=== PATIENT | female | born 1985 ===

== ENCOUNTER 2024-02-08 12:42 | Outpatient (REF) | payer SELFPAY ==
[2024-02-08 13:10] LABS: MANUAL DIFF FLAG NO
[2024-02-08 13:36] LABS: Basophils Absolute Auto 0.1 X10*3/uL (0.0-0.2); Basophils Percent Auto 0.6 % (0-2); Eosinophils Absolute Auto 0.1 X10*3/uL (0.0-0.4); Eosinophils Percent Auto 0.9 % (0-4); Hematocrit 38.6 % (37.0-47.0); Hemoglobin 12.2 g/dl (12.0-16.0); Imm Gran Abs Auto 0.07 X10*3/uL (0.00-0.03); Imm Gran Pct Auto 0.6 % (0.0-0.4); Lymphocytes Absolute Auto 1.6 X10*3/uL (1.2-4.9); Mean Corpuscular HGB Conc 31.6 g/dl (31.0-35.0); Mean Corpuscular Hemoglobin 29.7 pg (27.0-33.0); Mean Corpuscular Volume 93.9 fL (80.0-98.0); Mean Platelet Volume 11.8 fL (9.4-12.3); Monocytes Absolute Auto 0.8 X10*3/uL (0.1-1.2); Monocytes Percent Auto 6.8 % (2-11); Neutrophils Absolute Auto 9.3 x10*3/uL (2.0-8.3); Neutrophils Percent Auto 78.1 % (45-73); Platelet Count 223 X10*3/uL (160-400); Red Blood Count 4.11 X10*6/uL (4.20-5.50); Red Cell Distribution Width 14.1 % (11.0-16.0); White Blood Count 11.9 X10*3/uL (4.8-10.8)
[2024-02-08 13:59] LABS: Anion Gap 14 (12-20); Blood Urea Nitrogen 48 mg/dL (9-16); Calcium 9.6 mg/dL (8.4-10.2); Carbon Dioxide 16 mmol/L (22-29); Chloride 112 mmol/L (96-108); Estimated Glomerular Filt Rate 19; Glucose Random 86 mg/dL (60-115); Potassium 4.6 mmol/L (3.3-5.1); Sodium 137 mmol/L (135-145)
[2024-02-09 03:26] LABS: CT PCR NOT DETECTED (Not Detect.); NG PCR NOT DETECTED (Not Detect.)
== END 2024-02-08 12:43 | disposition home or self-care (01) ==
LOC: HO.HHCL 12:42
PROVIDERS: Visit Provider Emergency Medicine
DX: N18.4 Chronic kidney disease, stage 4 (severe) (principal); R39.9 Unspecified symptoms and signs involving the genitourinary system
CPT/HCPCS: 36415; 80048; 85025; 87086; 87491; 87591

== ENCOUNTER 2024-02-13 10:26 | Outpatient (REF) | payer SELFPAY ==
[2024-02-13 13:38] LABS: CT PCR NOT DETECTED (Not Detect.); NG PCR NOT DETECTED (Not Detect.)
== END 2024-02-13 10:27 | disposition home or self-care (01) ==
LOC: HO.HHCL 10:26
PROVIDERS: Visit Provider Emergency Medicine
DX: N18.4 Chronic kidney disease, stage 4 (severe) (principal)
CPT/HCPCS: 87491; 87591

== ENCOUNTER 2025-04-05 14:35 | Outpatient (REF) | payer MEDICAID, OTHER, SELFPAY ==
--- OUTSIDE RECORDS SUMMARY | 2025-04-05 13:20 | XMS_ITS | Encounter Summary ---
Author Organization [employer] Address [address] [place] [address] Care Team Providers Care Industrial Truck Operator Name Role Phone Fidencio Dockery MD Primary Care Provider [phone] Reason for Visit * Reason Comments UTI Encounter Details Date Type Department Care Team ([facility] Contact Info) Description 04/05/2025 1:20 PM EDT Office Visit [facility] [address] [address] Dysuria (Primary Dx); Elevated blood pressure reading in office with diagnosis of hypertension; Vaginal discharge Social History Tobacco Use Types Packs/Day Years Used Date Smoking Tobacco: Never Passive Smoke Exposure: Never Smokeless Tobacco: Never Depression Answer Date Recorded Patient Health Questionnaire-9 Score 7 12/03/2024 Patient Health Questionnaire-9 Score 7 12/03/2024 Last PHQ-9: Questionnaire Data Not on file 0 12/03/2024 Housing Stability Answer Date Recorded What is your housing situation today? I have janny caballero 12/03/[address] you li ve. Do you have problems with any of the following? None of the above 12/03/2024 Food Insecurity Answer Date Recorded Within the past 12 months, y ou worried that your food would run out before you got money to buy more: Never True 12/03/2024 Within the past 12 months,th e food you bought just didn't last and you didn't have enough money to get more: Never True Transportation Answer Date Recorded In the past 12 months, has l ack of transportation kept you from medical appts, meetings, work or from getting things needed for daily living? No 12/03/2024 Utilities Answer Date Recorded In the past 12 months, has t he electric, gas, oil or water company threatened to shut off services in your home? No 12/03/2024 Depression Answer Date Recorded Patient Health Questionnaire-2 Score 0 12/03/2024 Internet Access Answer Date Recorded Internet Access Q1 Yes 12/03/2024 Internet Access Q2 Not on file 12/03/2024 Comments Unknown Sex and Gender Information Value Date Recorded Sex Assigned at Female 04/05/2022 10:35 AM EDT Legal Sex Female 10:35 AM EDT Gender Identity Female 04/05/2022 10:35 AM EDT Sexual Orientation Straight 04/05/2022 10 :35 AM EDT documented as of this encounter Last Filed Vital Signs Vital Sign Reading Time Taken Comments Blood Pressure 138/82 04/05/2025 2:24 PM EDT Pulse 94 04/05/2025 12:59 PM EDT Temperature 37.1 C (98.8 F) 04/05/2025 12:59 PM EDT Respiratory Rate 23 04/05/2025 12:59 PM EDT Oxygen Saturation 98% 04/05/2025 12:59 PM EDT Inhaled Oxygen Concentration - - Weight 81.9 kg (180 lb 9.6 oz) 04/05/2025 12:59 PM EDT Height 157.5 cm (5' 2 ) 04/05/2025 12:59 PM EDT Body Mass Index 33.03 04/05/2025 12:59 PM EDT documented in this encounter Plan of Treatment Upcoming Encounters Date Type Department Care Team (Late st Contact Info) Description 04/18/2025 3:00 PM EST Office Visit [facility] ADULT D[facility]AL [address] [place] [address] Windy Warren [address] [place] [address] [phone] Scheduled Orders Name Type Priority Associated Diagnoses Orde r Schedule Culture, Urine, Routine Microbiology Routine Dysuria Ordered: 04/05/2025 Basic Metabolic Panel Lab Routine Dysuria Expected: 04/05/2025 (Approximate), Expires: 04/05/2026 Bacterial Vaginosis, Yeast and Trich Microbiology Routine Vaginal discharge Expected: 04/05/2025 (Approximate), Expires: 04/05/2026 documented as of this encounter Procedures Procedure Name Priority Date/Time Associated Diagnosis Comments POCT URINALYSIS DIPSTICK Routine 04/05/2025 1:13 PM EDT Dysuria documented in this encounter Results * (ABNORMAL) POCT urinalysis dipstick manually resulted (CPT 17239) (04/05/2025 1:13 PM EDT) Color, UA Yellow Clarity, UA Clear Glucose, UA Negative Bilirubin, UA Negative Ketones, UA Negative Spec Grav, UA 1.020 Blood, UA Positive(A) Negative, None Detected Comment:trace-intact pH, UA 5.5 Protein, UA Trace Comment:100 mg/dl Urobilinogen, UA 0.2 Leukocytes, UA Trace Negative, Rare, Trace Comment:small Nitrite, UA Positive(A) Negative, None Detected Urine (Urine, Random) 04/05/2025 1:13 PM EDT [facility] LINEN ROOM SUPERVISOR POINT OF CARE TEST ENTER/EDIT O RDERABLES Final Result documented in this encounter Visit Diagnoses Diagnosis Dysuria- Primary Elevated blood pressure reading in office with diagnosis of hypertension Vaginal discharge Leukorrhea, not specified as infective documented in this encounter Additional Health Concerns Assessment Noted Time PHQ-9 Depression Total Score: 7 12/04/19 25 3:19 PM EDT documented as of this encounter Care Teams Industrial Truck Operator Relationship Specialty Start Date End Date Fidencio Dockery MD [address] [place] [id number] PCP - General Internal Medicine 06/11/21 documented as of this encounter
--- OUTSIDE RECORDS SUMMARY | 2025-04-05 15:08 | XMS_ITS | Encounter Summary ---
Author Organization [employer] Address [address] [place] [address] Care Team Providers Care Margin Analyst Name Role Phone Fidencio Dockery MD Primary Care Provider [phone]- [phone] Reason for Visit * Reason Onset Date Comments Nurse Triage 04/05/2025 Encounter Details Date Type Department Care Team ([facility] st Contact Info) Description 04/05/2025 Telephone [facility] MED & PEDS [address] [place] [address] Fidencio Dockery MD [address] [place] [address] Nurse Triage Social History Tobacco Use Types Packs/Day Years [...] AM EDT documented as of this encounter Miscellaneous Notes * Telephone Encounter - Gladys Casiano RN - 04/05/2025 11:46 AM EDT Clarita came to the office today for hepatitis B vaccine. During assessment, Clarita complained of feeling like she has a UTI. Juan complains of burning with urination and lower abdominal pain for 5 days without relief. Denies fevers, chills, nausea. Alert and oriented. Vitals: 97 F oral. 75 HR. 20 RR. 118/70 BP sit R arm. 95% room air. Advised of no available appointment in [facility] today and advised based on symptoms pt should be seen today. Advised to cancel appointment with nurse and schedule appointment with [facility]. Pt verbalized agreement. Appointment with nurse canceled and appointment booked in [facility] for 1:20 PM this afternoon. Advised pt will need to go to [facility]. Pt states has transportation and will go to [facility] [place] and verbalized agreement with plan. documented in this encounter Plan of Treatment Upcoming Encounters Date Type Department Care Team (Late st Contact Info) Description 04/18/2025 3:00 PM EST Office Visit [facility] ADULT DENTAL [address] [place] [address] Windy Warren [address] [place] [phone] documented as of this encounter Visit Diagnoses Not on filedocumented in this encounter Additional Health Concerns Assessment Noted Time PHQ-9 Depression Total Score: 7 12/04/19 25 3:19 PM EDT documented as of this encounter Care Teams Margin Analyst Relationship Specialty Start Date End Date Fidencio Dockery MD [address] [place] [phone] PCP - General Internal Medicine 06/11/21 documented as of this encounter
--- OUTSIDE RECORDS SUMMARY | 2025-04-05 15:08 | XMS_ITS | Clinical Summary ---
Author Organization [employer] Address [address] [place] [address] [address] [place] [address] Care Team Providers Care Mica Splitter Name Role Phone Fidencio Dockery MD Primary Care Provider [phone] Allergies No known active allergies Medications lisinopril 20 MG tablet TAKE 1 TABLET BY MOUTH EVERY DAY 90 tablet 1 12/04/2024 Active Active Problems Problem Noted Date Diagnosed Date CKD (chronic kidney disease) stage 4, GFR 15-29 ml/min ([facility]) 02/08/2024 HTN (hypertension) 02/08/2024 Proteinuria 09/01/2020 Encounters Date Type Department Care Team Description 04/05/2025 1:20 PM EDT Office Visit [facility] [address] [place] [address] Dysuria (Primary Dx); Elevated blood pressure reading in office with diagnosis of hypertension; Vaginal discharge 04/05/2025 Telephone [facility] MED & PEDS [address] [place], [place] [phone] Fidencio Dockery MD Nurse Triage 04/05/2025 Travel 03/29/2025 Travel 01/22/2025 3:00 PM EDT Office Visit [facility] D[facility] [address] [place], [place] [phone] Aldo Mejia DMD from Last 3 Months Immunizations Immunization Administration Dates Next Due Hep B, adult 12/03/2024 HepB-CpG 07/24/2024 Influenza injectable quadrivalent preservative f ree 04/08/2023,07/14/2021 Tdap 07/24/2024 Social History Tobacco Use Types Packs/Day Years [...] Orientation Straight 04/05/2022 10 :35 AM EDT Last Filed Vital Signs Vital Sign Reading [...] Mass Index 33.03 04/05/2025 12:59 PM EDT Plan of Treatment Upcoming Encounters Date Type Department Care Team (Late st Contact Info) Description 04/18/2025 3:00 PM EST Office Visit [facility] ADULT DENTAL [address] [place] [address] Windy Warren [address] [place] [address] [phone] Health Maintenance Due Date Last Done Comments Family Planning (PISQ) 1999 HPV Vaccines (1 - 3-dose series) 1999 Dental X-Ray: Full Mouth 01/05/2022 01/04/2019 Dental Oral Exam 04/07/2024 10/05/2023, , 01/04/2019 Cervical Cancer Screening 07/14/2024 HPV/Cotest 07/14/2024 07/14/2021 Pap Smear 07/14/2024 07/14/2021 Hepatitis B Vaccines (3 of 3 - 19+ 3-dose series) 01/28/2025 12/03/2024, 07/24/2024 COVID-19 Vaccine (3 - 2024- season) 2025 04/08/2023, 07/13/2021 Influenza Vaccine (#1) 2025 04/08/2023, 2021 Dental Prophylaxis 04/13/2025 10/10/2024, 1 06/09/2023, 10/05/2023, Additional history exists Dental X-Ray: Bitewings 05/16/2025 05/15/20 24, 10/05/2023, 09/06/2023, Additional history exists Alcohol/Substance Use Screening 12/03/2025 12/03/2024 Depression Screening 12/03/2025 12/03/2024, 12/04/19 SDOH Screening 12/03/2025 12/03/2024 Tobacco Screening 01/22/2026 01/22/2025 Disability Screening 03/29/2026 03/29/2025 Lipid Panel 07/14/2026 07/14/2021 Mammogram 08/21/2026 08/21/2024, 08/21/2024 Zoster Vaccines (1 of 2) 2034 DTaP/Tdap/Td Vaccines (2 - Td or Tdap) 07/24/2034 07/24/2024 RSV Patients and Patients Aged 60 years or older (1 - 1-dose 75+ series) 2059 Hepatitis C Screening Completed 07/14/2021 HIV Screening Completed 07/24/2024, 07/14/2021 HIB Vaccines Aged Out No longer eligi ble based on patient's age to complete this topic Hepatitis A Vaccines Aged Out No long er eligible based on patient's age to complete this topic IPV Vaccines Aged Out No longer eligi ble based on patient's age to complete this topic Meningococcal B Vaccine Aged Out No l onger eligible based on patient's age to complete this topic Meningococcal Vaccine Aged Out No chandrakant kip eligible based on patient's age to complete this topic Pneumococcal Vaccine: Pediatrics (0 to 5 Years) and At-Risk Patients (6 to 49) Years Aged Out No longer eligible based on patient's age to complete this topic RSV under 20 months Aged Out No longe r eligible based on patient's age to complete this topic Rotavirus Vaccines Aged Out No longer eligible based on patient's age to complete this topic Procedures Procedure Name Priority Date/Time Associated Diagnosis Comments POCT URINALYSIS DIPSTICK Routine 04/05/2025 1:13 PM EDT Dysuria CASE PRESENTATION, DETAILED AND EXTENSIVE TREATMENT PLANNING Routine 01/22/2025 3:00 PM EDT 4 MO RESIN-BASED COMPOSITE - 2 SURF, POSTERIOR Routine 01/22/2025 3:00 PM EDT PROPHYLAXIS - ADULT Routine 10/10/2024 3 :00 PM EDT BITEWINGS - 2 RADIOGRAPHIC IMAGES Routine 05/15/2024 3:00 PM EST PERIODIC ORAL EVALUATION - ESTABLISHED PATIENT Routine 10/05/2023 3:00 PM EDT LIPID PANEL, STANDARD Routine 07/14/2021 9:41 AM EST ZZZ HISTORICAL HEPATITIS C AB W/REFL TO HCV RNA, QN, PCR Routine 07/14/2021 9:40 AM EST HIV 1/2 ANTIGEN/ANTIBODY, FOURTH GENERATION W/RFL Routine 07/14/2021 9:40 AM EST THINPREP IMAGING PAP AND HPV MRNA E6/E7, WITH CT/NG, TRICHOMONAS Routine 07/14/2021 9:00 AM EST INTRAORAL - COMPLETE SERIES OF RADIOGRAPHIC IMAGES Routine 01/04/2019 12:00 AM EDT from Last 3 Months or Most Recently Relevant to Health Maintenance Results * (ABNORMAL) POCT urinalysis dipstick manually resulted (CPT 33615) (04/05/2025 1:13 PM EDT) Color, UA Yellow Clarity, UA Clear Glucose, UA Negative Bilirubin, UA Negative Ketones, UA Negative Spec Grav, UA 1.020 Blood, UA Positive(A) Negative, None Detected Comment:trace-intact pH, UA 5.5 Protein, UA Trace Comment:100 mg/dl Urobilinogen, UA 0.2 Leukocytes, UA Trace Negative, Rare, Trace Comment:small Nitrite, UA Positive(A) Negative, None Detected Urine (Urine, Random) 04/05/2025 1:13 PM EDT Sirena Fernández NP POINT OF CARE TEST ENTER/EDIT O RDERABLES Final Result * (ABNORMAL) LIPID PANEL, STANDARD (07/14/2021 9:41 AM EST) Chol/HDLC Ratio 3.8 <5.0 (calc) [facility] Cholesterol, Total 212(H) <200 mg/dL [facility] HDL Cholesterol 56 > OR = 50 mg/dL [facility] LDL Cholesterol 131(H) mg/dL (calc) [facility] Comment: Reference range: <100 Desirable range <100 mg/dL for primary prevention; <70 mg/dL for patients with CHD or diabetic patients with > or = 2 CHD risk factors. LDL-C is now calculated using the Louis calculation, which is a validated novel method providing better accuracy than the Friedewald equation in the estimation of LDL-C. Bhaskar CORTEZ et al. GISELE. 2013;310(19): 7980-8570 (http://education.BullGuard/faq/PSE053) Non-HDL Cholesterol 156(H) <130 mg/dL (calc) [facility] Comment: For patients with diabetes plus 1 major ASCVD risk factor, treating to a non-HDL-C goal of <100 mg/dL (LDL-C of <70 mg/dL) is considered a therapeutic option. Triglycerides 140 <150 mg/dL [facility] 07/14/2021 9:41 AM EST [facility] LAB BLOOD ORDERABLES Sarah l Result Performing Organization Address [facility] de Phone Number [facility] [address] * HEPATITIS C AB W/REFL TO HCV RNA, QN, PCR (07/14/2021 9:40 AM EST) HEPATITIS C ANTIBODY NON-REACT MORE NON-REACT MORE [facility] INDEX 0.04 <1.00 [facility] Comment: HCV antibody was non-reactive. There is no laboratory evidence of HCV infection. In most cases, no further action is required. However, if recent HCV exposure is suspected, a test for HCV RNA (test code 64127) is suggested. For additional information please refer to http://education.f-star Biotech/faq/GSW25d7 (This link is being provided for informational/ educational purposes only.) 07/14/2021 9:40 AM EST [facility] HISTORICAL/NON ORDERABLE LABS Final Result Performing Organization Address [facility] Co de Phone Number [facility] [address] [place] [address], * HIV 1/2 ANTIGEN/ANTIBODY,FOURTH GENERATION W/RFL (07/14/2021 9:40 AM EST) HIV-1/2 ANTIGEN AND ANTIBODIES, 4TH GENERATION W/ REFLEX NON-REACT MORE NON-REACT MORE [facility] Comment: HIV-1 antigen and HIV-1/HIV-2 antibodies were not detected. There is no laboratory evidence of HIV infection. PLEASE NOTE: This information has been disclosed to you from records whose confidentiality may be protected by state law. If your state requires such protection, then the state law prohibits you from making any further disclosure of the information without the specific written consent of the person to whom it pertains, or as otherwise permitted by law. A general authorization for the release of medical or other information is NOT sufficient for this purpose. For additional information please refer to http://Geofusion.f-star Biotech/faq/KPI313 (This link is being provided for informational/ educational purposes only.) The performance of this assay has not been clinically validated in patients less than 2 years old. 07/14/2021 9:40 AM EST us Luna [facility] LAB BLOOD ORDERABLES Sarah mejia Result [facility] [address] * (ABNORMAL) THINPREP TIS PAP AND HPV mRNA E6/E7, CT/NG, TRICH (07/14/2021 9:00 AM EST) Chlamydia trachomatis RNA, TMA, Urogenital NOT DETECTED NOT DETECTED [facility] Clinical Information: None given [facility] COMMENT SEE COMMENT [facility] Comment: The analytical performance characteristics of this assay, when used to test SurePath(TM) specimens have been determined by [facility]. The modifications have not been cleared or approved by the FDA. This assay has been validated pursuant to the CLIA regulations and is used for clinical purposes. For additional information, please refer to https://education.Ecolibrium.Mofibo/faq/JVP021 (This link is being provided for information/ educational purposes only.) COMMENT SEE COMMENT [facility] Comment: EXPLANATORY NOTE: The Pap is a screening test for cervical cancer. It is not a diagnostic test and is subject to false negative and false positive results. It is most reliable when a satisfactory sample, regularly obtained, is submitted with relevant clinical findings and history, and when the Pap result is evaluated along with historic and current clinical information. COMMENT: This Pap test has been evaluated with computer assisted technology. [employer] Clinical Cytopathologist: SEE COMMENT [facility] Comment: KN, CT(ASCP) CT screening location: [place] [address] General Categorization: EPITHELIAL CELL ABNORMALITY(A) [facility] HPV nRNA E6/E7 Not Detected Not Detected [facility] Comment: Methodology: Residential Field Manager-Mediated Amplification This assay detects E6/E7 viral messenger RNA (mRNA) from 14 high-risk HPV types (16,18,31,33,35,39,45,51,52,56,58,59,66,68). The analytical performance characteristics of this assay have been determined by [employer]. The modifications have not been cleared or approved by the FDA. This assay has been validated pursuant to the CLIA regulations and is used for clinical purposes. For additional information, please refer to http://Geofusion.f-star Biotech/faq/QWT381f9 (This link if provided for information/ educational purposes only.) Interpretation/Res ult: Atypical Squamous Cells of Undetermined Significance (ASC-US)(A) [facility] LMP: 06/27/21 [facility] Neisseria gonorrhoeae RNA, TMA, Urogenital NOT DETECTED NOT DETECTED [facility] PATHOLOGIST: SEE COMMENT [facility] Comment: Fabiana Read M.D., Board Certified in Anatomic and Clinical Pathology (electronic signature) Consulting Pathologist [facility] Pathology [phone] Prev. BX: NONE GIVEN [facility] Prev. PAP: NIL/HPV NEG 05/2018 [facility] SOURCE: None given [facility] Statement Of Adequacy: SEE COMMENT [facility] Comment: Satisfactory for evaluation. Endocervical/transformation zone component absent. Trichomonas vaginalis, QL, TMA, PAP Vial NOT DETECTED NOT DETECTED [facility] Comment: The analytical performance characteristics of this assay have been determined by [employer]. The modifications have not been cleared or approved by the FDA. This assay has been validated pursuant to the CLIA regulations and is used for clinical purposes. For additional information, please refer to http://Geofusion.f-star [employer]/ faq/Trichomonastma (This link is being provided for information/ educational purposes only.) 07/14/2021 9:00 AM EST Luna Lucio CN LAB PATHOLOGY ORDERABLES Final Result [facility] [address] from Last 3 Months or Most Recently Relevant to Health Maintenance [place] [address] [address] [place] [address] LIMITED HSN FULL DENTAL-[facility] MEDICA[employer] LIMITED ADULT DENTAL - N FULL (MEDICAID) Care Teams Mica Splitter Relationship Specialty Start Date End Date Fidencio Dockery MD [address] [place] [id number] PCP - General Internal Medicine 06/11/21
--- OUTSIDE RECORDS SUMMARY | 2025-04-05 15:08 | XMS_ITS | Encounter Summary ---
Author Organization [employer] Address [address] [facility] [address] [place] [address] Care Team Providers Care Cook Helper Dessert Name Role Phone Fidencio Dockery MD Primary Care Provider [phone]- [phone] Encounter Details Date Type Department Care Team (Latest Contact Info) Description 04/05/2025 Travel Social History Tobacco Use Types Packs/Day Years [...] AM EDT documented as of this encounter Plan of Treatment Upcoming Encounters Date Type Department Care Team (Late st Contact Info) Description 04/18/2025 3:00 PM EST Office Visit [facility] AD[facility] [address] [place] [address] Windy Warren [address] [place] [phone] documented as of this encounter Visit Diagnoses Not on filedocumented in this encounter Additional Health Concerns Assessment Noted Time PHQ-9 Depression Total Score: 7 12/04/19 25 3:19 PM EDT documented as of this encounter Care Teams Cook Helper Dessert Relationship Specialty Start Date End Date Fidencio Dockery MD [address] [place] [address] PCP - General Internal Medicine 06/11/21 documented as of this encounter
--- OUTSIDE RECORDS SUMMARY | 2025-04-05 15:08 | XMS_ITS | Clinical Summary ---
Author Organization [facility] Address [address] [place] [address] Phone Care Team Providers Care Branch Operations Coordinator Name Role Phone Wen Mills Primary Care Provider [phone] Social History Tobacco Use Types Packs/Day Years Used Date Smoking Tobacco: Never Assessed Comments No Sex and Gender Information Value Date Recorded Sex Assigned at Not on file Legal Sex Female 4:41 PM EST Gender Identity Not on file Sexual Orientation Not on file Obstetrics History Para Term AB IAB SAB Ectopic Multiple Livin g Live Births 1 Last Filed Vital Signs Vital Sign Reading Time Taken Comments Blood Pressure - - Pulse - - Temperature - - Respiratory Rate - - Oxygen Saturation - - Inhaled Oxygen Concentration - - Weight 72 kg (158 lb 11.7 oz) 08/21/2024 1:36 PM EDT Height 165.1 cm (5' 5 ) 08/21/2024 1:36 PM EDT Body Mass Index 26.41 08/21/2024 1:36 PM EDT Plan of Treatment Health Maintenance Due Date Last Done Comments Cervical Cancer Screening: Pap Smear 2005 HPV Vaccines (1 - 3-dose SCDM series) 2011 Depression Screening 06/06/2024 Social Influencers of Health Screening 07/26/2024 Hepatitis B Vaccines (2 of 2 - CpG 2-dose series) 08/21/2024 07/24/2024 COVID-19 Vaccine ( season) 2025 10/12/2020, 09/21/2020 Influenza Vaccine (#1) 2025 07/14/2021 Hypertension/CHF/CAD Annual BMP Blood Test 07/24/2025 07/24/2024 Breast Cancer Screening 08/21/2026 08/21/2024 Cholesterol Screening (Lipid Panel) 07/24/2029 07/24/2024, 07/24/2024, 04/17/2024, Additional history exists DTaP,Tdap,and Td Vaccines (2 - Td or Tdap) 07/24/2034 07/24/2024 RSV Immunization Adult Patients (1 - 1-dose 75+ series) 2059 HIV Screening Completed 07/14/2021 Hepatitis C Screening Completed 07/24/2024, 024 HIB Vaccines Aged Out No longer eligi ble based on patient's age to complete this topic Hepatitis A Vaccines Aged Out No long er eligible based on patient's age to complete this topic IPV Vaccines Aged Out No longer eligi ble based on patient's age to complete this topic MMR Vaccines Aged Out No longer eligi ble based on patient's age to complete this topic Meningococcal ACWY Vaccine Aged Out N o longer eligible based on patient's age to complete this topic Meningococcal B Vaccine Aged Out No l onger eligible based on patient's age to complete this topic Pneumococcal Vaccine: Pediatrics (0 to 5 Years) and At-Risk Patients (6 to 49 Years) Aged Out No longer eligible based on patient's age to complete this topic RSV Immunization Patients Under 20 months Aged Out No longer eligible based on patient's age to complete this topic Varicella Vaccines Aged Out No longer eligible based on patient's age to complete this topic Procedures Procedure Name Priority Date/Time Associated Diagnosis Comments MG MAMMO DIGITAL SCREENING W JULIO BILAT Routine 08/21/2024 1:51 PM EDT Encounter for screening mammogram for malignant neoplasm of breast from Last 3 Months or Most Recently Relevant to Health Maintenance Results * MG Mammo Digital Screening w Julio bilat (08/21/2024 1:51 PM EDT) Anatomical Region Laterality Modality Breast Bilateral Mammography 08/21/2024 3:41 PM EDT Impressions 08/21/2024 3:46 PM EDT No evidence of breast malignancy. BI-RADS CATEGORY: 1 - NEGATIVE RECOMMENDATION: Screening bilateral mammogram is recommended in 1 year. Mammo Location: [facility], [address] [place] [address], [id number], . -------- FINAL REPORT -------- Dictated By: Kayla Hodge Dictated Date: 08/21/2024 15:41 ET Assigned Physician: Kayla Hodge Reviewed and Electronically Signed By: Kayla Hodge Signed Date: 08/21/2024 15:46 ET Workstation ID: [id number] Transcribed By: Self Edit Transcribed Date: 08/21/2024 15:41 ET Narrative 08/21/2024 3:46 PM EDT CLINICAL: 39 years old, Female, routine annual exam. Baseline exam. COMPARISON: No priors available. TECHNIQUE: Bilateral MLO and CC views were obtained digitally with 3-D mammogram (digital breast tomosynthesis). Computer-aided detection was utilized in evaluation of this exam (CAD). FINDINGS: There is no evidence of suspicious mass or architectural distortion. No worrisome calcifications are evident. BREAST DENSITY: C - The breasts are heterogeneously dense which may obscure small masses. Procedure Note Kayla Hodge MD - 08/21/2024 CLINICAL: 39 years old, Female, routine annual exam. Baseline exam. COMPARISON: No priors available. TECHNIQUE: Bilateral MLO and CC views were obtained digitally with 3-Dmammogram (digital breast tomosynthesis). Computer-aided detection wasutilized in evaluation of this exam (CAD). FINDINGS: There is no evidence of suspicious mass or architectural distortion. Noworrisome calcifications are evident. BREAST DENSITY: C - The breasts are heterogeneously dense which mayobscure small masses. IMPRESSION: No evidence of breast malignancy. BI-RADS CATEGORY: 1 - NEGATIVE RECOMMENDATION: Screening bilateral mammogram is recommended in 1 year. Mammo Location: [facility], [address] [place] [address], [phone], . -------- FINAL REPORT -------- Dictated By: Kayla Hodge Dictated Date: 08/21/2024 15:41 ET Assigned Physician: Kayla Hodge Reviewed and Electronically Signed By: Kayla Hodge Signed Date: 08/21/2024 15:46 ET Workstation ID: [id number] Transcribed By: Self Edit Transcribed Date: 08/21/2024 15:41 ET Wen DEAN IMG BI PROCEDURES Final Result from Last 3 Months or Most Recently Relevant to Health Maintenance Insurance MEDICAID - [place] Care Teams Branch Operations Coordinator Relationship Specialty Start Date End Date Wen Mills PA [address] [place] [address] PCP - General 08/18/24
--- OUTSIDE RECORDS SUMMARY | 2025-04-05 15:08 | XMS_ITS | Encounter Summary ---
Author Organization [facility] Address [address] [place] [address] Care Team Providers Care Machine Bender Name Role Phone Fidencio Dockery Primary Care Provider + [phone] Encounter Details Date Type Department Care Team (Late st Contact Info) Description 02/13/2024 Transcribe Orders [facility] Physician Referral Services [address] [place] [address] Fidencio Dockery [address] [place], [place] [id number] CKD (chronic kidney disease) stage 4, GFR 15-29 ml/min (Primary Dx); Essential hypertension, benign Social History Tobacco Use Types Packs/Day Years Used Date Smoking Tobacco: Never Assessed Comments Unknown Sex and Gender Information Value Date Recorded Sex Assigned at Female 03/19/2024 12:05 PM EDT Legal Sex Female 3:45 PM EDT Gender Identity Female 03/19/2024 12:05 PM EDT Sexual Orientation Other 03/19/2024 12 :05 PM EDT documented as of this encounter Plan of Treatment Not on file documented as of this encounter Visit Diagnoses Diagnosis CKD (chronic kidney disease) stage 4, GFR 15-29 ml/min- Primary Chronic kidney disease, Stage IV (severe) Essential hypertension, benign documented in this encounter Care Teams Machine Bender Relationship Specialty Start Date End Date Fidencio Dockery [address] [place], [place] [phone] PCP - General Internal Medicine 02/13/24 documented as of this encounter
--- OUTSIDE RECORDS SUMMARY | 2025-04-05 15:08 | XMS_ITS | Encounter Summary ---
Author Organization [facility] Address [address] [place] [address] [place] [address] Care Team Providers Care Ware Server Name Role Phone Fidencio Dockery MD Primary Care Provider [phone] Encounter Details Date Type Department Care Team (Latest Contact Info) Description 06/19/2021 Abstract [facility] CONVERSIONS Dental, Provider, DDS Social History Tobacco Use Types Packs/Day Years [...] Upcoming Encounters Date Type Department Care Team ( st Contact Info) Description 04/18/2025 3:00 PM EST Office Visit [facility] [address] [place] [address] Windy [address] [place] [address] documented as of this encounter Visit Diagnoses Not on filedocumented in this encounter Care Teams Ware Server Relationship Specialty Start Date End Date Fidencio Dockery MD [address] [place] [address] PCP - General Internal Medicine 06/11/21 documented as of this encounter
--- OUTSIDE RECORDS SUMMARY | 2025-04-05 15:08 | XMS_ITS | Clinical Summary ---
Author Organization [facility] Address [address] [place] [address] Care Team Providers Care Box Truck Driver Name Role Phone Fidencio Dockery Primary Care Provider + [phone] Medications amLODIPine (NORVASC) 10 mg tablet Take 1 tablet (10 mg total) by mouth once a day. 30 tablet 11 03/20/2024 Active Social History Tobacco Use Types Packs/Day Years Used Date Smoking Tobacco: Never Tobacco Cessation:Counseling Given: Not Answered Comments:Pt says she never smoked Comments Unknown Sex and Gender Information Value Date Recorded Sex Assigned at Female 03/19/2024 12:05 PM EDT Legal Sex Female 3:45 PM EDT Gender Identity Female 03/19/2024 12:05 PM EDT Sexual Orientation Other 03/19/2024 12 :05 PM EDT Last Filed Vital Signs Vital Sign Reading Time Taken Comments Blood Pressure 136/89 03/20/2024 10:09 AM EDT Pulse 88 03/20/2024 10:09 AM EDT Temperature 36.9 C (98.5 F) 03/20/2024 10:09 AM EDT Respiratory Rate - - Oxygen Saturation - - Inhaled Oxygen Concentration - - Weight 79.9 kg (176 lb 2.4 oz) 03/20/2024 10:09 AM EDT w/shoes Height 160 cm (5' 2.99 ) 03/20/2024 10:09 AM EDT Body Mass Index 31.21 03/20/2024 10:09 AM EDT Plan of Treatment Health Maintenance Due Date Last Done Comments 25 Hydroxy / Vitamin D 1984 CKD: Referral to Nutrition 1984 Cervical Cancer Screening 1984 HPV and Pap Smear 1984 Hepatitis C Screening 1984 Pap Smear 1984 Varicella Vaccines (1 of 2 - 13+ 2-dose series) 1997 Hepatitis B Vaccines (1 of 3 - 19+ 3-dose series) 2003 DTaP,Tdap,and Td Vaccines (1 - Tdap) 2006 Mammogram 2024 Alcohol/Substance Use Screening 06/06/2024 Depression Screening and Follow-Up 06/06/2024 [email or web address] Drivers of Health Annual Screening 06/06/2024 Basic Metabolic Panel 06/20/2024 03/20/2024 , 02/08/2024 COVID-19 Vaccine ( - season) 2025 10/12/2020, 09/21/2020 Influenza Vaccine (#1) 2025 07/14/2021 Hemoglobin 03/20/2025 03/20/2024 PTH 03/20/2025 03/20/2024 Phosphorus 03/20/2025 03/20/2024 Urine Microalbumin 03/20/2025 03/20/2024 RSV Vaccine (60+ years old and patients) (1 - 1-dose 75+ series) 2059 HIV Screening Completed 07/14/2021, 07/14/2021 CKD: Referral to Nephrology Completed 03/20/2024 Diabetes Screening Discontinued 03/20/2024, 02/08/2024 Pneumococcal Vaccine: Pediatric (0-5 Years) and At-Risk Patients (6-50 Years) Aged Out No longer eligible b ased on patient's age to complete this topic Procedures * Due to [place] state law, this organization might not be sharing negative HIV tests. Procedure Name Priority Date/Time Associated Diagnosis Comments PTH, INTACT (WITHOUT CALCIUM) Routine 03/20/2024 11:49 AM EDT Chronic kidney disease, stage IV (severe) MICROALBUMIN, RANDOM URINE WITH CREATININE Routine 03/20/2024 11:48 AM EDT Chronic kidney disease, stage IV (severe) CBC AUTO DIFFERENTIAL Routine 03/20/2024 11:48 AM EDT Chronic kidney disease, stage IV (severe) RENAL FUNCTION PANEL Routine 03/20/2024 11:48 AM EDT Chronic kidney disease, stage IV (severe) from Last 3 Months or Most Recently Relevant to Health Maintenance Results * Due to [place] state law, this organization might not be sharing negative HIV tests. * (ABNORMAL) PTH, Intact (without Calcium) (03/20/2024 11:49 AM EDT) Parathyroid Hormone, Intact 186(H) 16 - 77 pg/mL 03/21/2024 4:14 AM EDT [facility] Comment: Interpretive Guide Intact PTH Calcium ------- Normal Parathyroid Normal Normal Hypoparathyroidism Low or Low Normal Low Hyperparathyroidism Primary Normal or High High Secondary High Normal or Low Tertiary High High Non-Parathyroid Hypercalcemia Low or Low Normal High Blood Structure of peripheral vein / Unknown Venipuncture / Unknown 03/20/2024 11:49 AM EDT 03/20/2024 11:49 AM EDT Narrative [facility] - 03/21/2024 4:14 AM EDT [facility] Received Date: Harsh Alejo MD LAB BLOOD ORDERAB LES Final Result [facility] [address] [facility] [address], [place] [address], [place] [phone] [facility] [address] [facility] [address], [place] [address], [place] [phone] * (ABNORMAL) CBC Auto Differential (03/20/2024 11:48 AM EDT) WBC 9.6 3.8 - 10.8 10*3/uL 03/20/2024 12:03 PM EDT [facility] RBC 4.43 3.80 - 5.10 10*6/uL 03/20/2024 12:03 PM EDT [facility] Hemoglobin 13.0 11.7 - 15.5 g/dL 03/20/2024 12:03 PM EDT [facility] Hematocrit 40.3 35.0 - 45.0 % 03/20/2024 12:03 PM EDT [facility] MCV 91.0 80.0 - 100.0 fL 03/20/2024 12:03 PM EDT [facility] MCH 29.3 27.0 - 33.0 pg 03/20/2024 12:03 PM EDT [facility] MCHC 32.3 32.0 - 36.0 g/dL 03/20/2024 12:03 PM EDT [facility] RDW 13.8 11.0 - 15.0 % 03/20/2024 12:03 PM EDT [facility] Platelets 249 140 - 400 10*3/uL 03/20/2024 12:03 PM EDT [facility] MPV 10.9 7.5 - 12.5 fL 03/20/2024 12:03 PM EDT [facility] Neutrophil % 65.5 % 03/20/2024 12:03 PM EDT [facility] Immature Grans % 0.5 0.0 - 0.9 % 03/20/2024 12:03 PM EDT [facility] Lymphocyte % 22.5 % 03/20/2024 12:03 PM EDT [facility] Monocyte % 5.6 % 03/20/2024 12:03 PM EDT [facility] Eosinophil % 5.2 % 03/20/2024 12:03 PM EDT [facility] Basophil % 0.7 % 03/20/2024 12:03 PM EDT [facility] Neutrophil # 6.28 1.50 - 7.80 10*3/uL 03/20/2024 12:03 PM EDT [facility] Immature Grans # 0.05(H) <=0.03 10*3/uL 03/20/2024 12:03 PM EDT [facility] Lymphocyte # 2.20 0.85 - 3.90 10*3/uL 03/20/2024 12:03 PM EDT [facility] Monocyte # 0.50 0.20 - 0.95 10*3/uL 03/20/2024 12:03 PM EDT [facility] Eosinophil # 0.50 0.02 - 0.50 10*3/uL 03/20/2024 12:03 PM EDT [facility] Basophil # 0.10 0.00 - 0.20 10*3/uL 03/20/2024 12:03 PM EDT [facility] nRBC % 0.0 /100 WBCs 03/20/2024 12:03 PM EDT [facility] nRBC # <0.01 <0.01 10*3/uL 03/20/2024 12:03 PM EDT [facility] Blood Structure of peripheral vein / Unknown Venipuncture / Unknown 03/20/2024 11:48 AM EDT 03/20/2024 11:48 AM EDT us Harsh Alejo MD LAB BLOOD ORDERAB LES Final Result [facility] [address] [place] [address], [place] * (ABNORMAL) Microalbumin, Random Urine with Creatinine (03/20/2024 11:48 AM EDT) Microalbumin, Urine 16.2 mg/dL 03/20/2024 12:19 PM EDT [facility] Creatinine, Urine 36 15 - 278 mg/dL 03/20/2024 12:19 PM EDT [facility] Microalb/Creat Ratio, Random Urine 450.0(H) <30.0 mcg/mgCr 03/20/2024 12:19 PM EDT [facility] Comment: Microalbumin Reference Range: Normal <30 mcg/mg Creatinine Microalbuminuria 30-300 mcg/mg Creatinine Clinical Albuminuria >300 mcg/mg Creatinine Reference: ADA Guideline. Diabetes Care. 2004;27 (suppl 1) Urine Voided urine specimen / Unknown 03/20/2024 11:48 AM EDT 03/20/2024 11:48 AM EDT us Harsh Alejo MD LAB URINE ORDERAB LES Final Result [facility] [address] [place] [address], [place] * (ABNORMAL) Renal Function Panel (03/20/2024 11:48 AM EDT) NA 136 135 - 145 mmol/L 03/20/2024 12:27 PM EDT [facility] K 5.6(H) 3.5 - 5.3 mmol/L 03/20/2024 12:27 PM EDT [facility] Cl 105 98 - 107 mmol/L 03/20/2024 12:27 PM EDT [facility] CO2 19(L) 22 - 32 mmol/L 03/20/2024 12:27 PM EDT [facility] Anion Gap 12 5 - 15 03/20/2024 12:27 PM EDT [facility] Glucose 94 65 - 99 mg/dL 03/20/2024 12:27 PM EDT [facility] BUN 45(H) 7 - 23 mg/dL 03/20/2024 12:27 PM EDT [facility] Creatinine 2.72(H) 0.50 - 1.20 mg/dL 03/20/2024 12:27 PM EDT [facility] Calcium 9.2 8.6 - 10.5 mg/dL 03/20/2024 12:27 PM EDT [facility] Phosphorus 3.1 2.5 - 4.5 mg/dL 03/20/2024 12:27 PM EDT [facility] Albumin 4.6 3.5 - 5.2 g/dL 03/20/2024 12:27 PM EDT [facility] eGFR 22(L) >=60 mL/min/1 .73m2 03/20/2024 12:27 PM EDT [facility] Comment:The estimated glomer ular filtration rate (eGFR) is calculated using a new formula developed by the NKF-ASN task force to eliminate race-based correction factors. The new formula uses serum/plasma creatinine, age, and gender to determine eGFR. A value below 60mls/min might indicate kidney disease and will be flagged. For additional information, see Dorina et al, Am J Kidney Dis. 2021;79(2):268- 288, A Unifying Approach for GFR estimation: Recommendations of the NKF-ASN Task Force on Reassessing the Inclusion of Race in Diagnosing Kidney Disease . Blood Structure of peripheral vein / Unknown 03/20/2024 11:48 AM EDT 03/20/2024 11:48 AM EDT us Harsh Alejo MD LAB BLOOD ORDERAB LES Final Result [facility] [address] [place] [phone], [place] from Last 3 Months or Most Recently Relevant to Health Maintenance Insurance HSNO/FREE CARE Care Teams Box Truck Driver Relationship Specialty Start Date End Date Fidencio Dockery [address] [place] [id number] PCP - General Internal Medicine 02/13/24
--- OUTSIDE RECORDS SUMMARY | 2025-04-05 15:08 | XMS_ITS | Clinical Summary ---
Author Organization [facility] Address [address] [place] [address] Care Team Providers Care Marketing Services Rep Name Role Phone Unavailable Primary Care Provider Unavailabl e Social History Tobacco Use Types Packs/Day Years Used Date Smoking Tobacco: Never Assessed Comments Unknown Sex and Gender Information Value Date Recorded Sex Assigned at Not on file Legal Sex Female 2:57 PM EDT Gender Identity Not on file Sexual Orientation Not on file Plan of Treatment Health Maintenance Due Date Last Done Comments Hepatitis C Virus Screening 1984 HIV Screening 1997 DTaP/Tdap/Td Vaccines (1 - Tdap) 2003 Hepatitis B Vaccines (1 of 3 - 19+ 3-dose series) 2003 COVID-19 Vaccine ( - 2023-2 5 season) 2025 HPV Vaccines (No Doses Required) Completed Pneumococcal Vaccine: Pediat rubi (0-5 Years) and At-Risk Patients (6 to 49 Years) Aged Out No longer eligible b ased on patient's age to complete this topic
--- OUTSIDE RECORDS SUMMARY | 2025-04-05 15:08 | XMS_ITS | Encounter Summary ---
Author Organization [employer] [facility] Address [address] [place] [address] [place] [address] Care Team Providers Care Machine Assembler Supervisor Name Role Phone Fidencio Dockery MD Primary Care Provider Encounter Details Date Type Department Care Team (Latest Contact Info) Description 01/04/2019 Abstract [facility] CONVERSIONS Dental, Provider, DDS Social History [...] Description 04/18/2025 3:00 PM EST Office Visit [facility] [address] [place] [address] Windy [address] [place] [address] documented as of this encounter Visit Diagnoses Not on filedocumented in this encounter Care Teams Machine Assembler Supervisor Relationship Specialty Start Date End Date Fidencio Dockery MD [address] [place] [address] PCP - General Internal Medicine 06/11/21 documented as of this encounter
[2025-04-05 16:25] LABS: Anion Gap 11 (12-20); Blood Urea Nitrogen 43 mg/dL (9-16); Calcium 9.0 mg/dL (8.4-10.2); Carbon Dioxide 18 mmol/L (22-29); Chloride 115 mmol/L (96-108); Estimated Glomerular Filt Rate 16; Potassium 5.4 mmol/L (3.3-5.1); Sodium 139 mmol/L (135-145)
[2025-04-06 13:53] LABS: Bacterial Vaginosis PCR POSITIVE (Negative); Candida Group PCR NOT DETECTED (Not Detect); Candida glab krusei PCR DETECTED (Not Detect); Trichomonas vaginalis PCR NOT DETECTED (Not Detect)
== END 2025-04-05 14:36 | disposition home or self-care (01) ==
LOC: HO.HHCL 14:35
PROVIDERS: PCP Internal Medicine; Visit Provider Nurse Practitioner
DX: N89.8 Other specified noninflammatory disorders of vagina (principal); R30.0 Dysuria
CPT/HCPCS: 36415; 80048; 81515; 87086; 87088; 87186